=== PATIENT | female | born 1985 | race African-American/Black ===

== ENCOUNTER 2025-02-12 11:21 | Emergency (ER) | payer OTHER ==
[~2025-02-12] VITALS: Ht 165.1 cm; Wt 95.0 kg
[2025-02-12 11:26] VITALS: O2SAT 99
[2025-02-12 11:58] LABS: CLARITY URINE CLOUDY (CLEAR); COLOR URINE YELLOW (YELLOW); GLUCOSE URINE NEGATIVE (NEGATIVE); KETONES URINE TRACE (NEGATIVE); LEUKOCYTE ESTERASE URINE TRACE (NEGATIVE); NITRITE URINE NEGATIVE (NEGATIVE); OCCULT BLOOD URINE NEGATIVE (NEGATIVE); PH URINE 6.5 (4.5-8.0); PROTEIN URINE TRACE (NEGATIVE); SPECIFIC GRAVITY URINE 1.032 (1.005-1.030); UROBILINOGEN URINE 1.0 E.U./dL (0.2-1.0)
[2025-02-12] MEDS: KETOROLAC 15MG/ML VIAL IV ONE (12:09)
[2025-02-12 12:10] LABS: BASOPHILS % 0.9 % (0.0-2.0); EOSINOPHILS % 2.3 % (0.0-5.0); HEMATOCRIT. 38.8 % (36.0-48.0); HEMOGLOBIN. 13.2 g/dL (12.0-16.0); LYMPHOCYTES % 20.0 % (20.0-50.0); MEAN PLATELET VOLUME 8.1 fl (7.4-10.4); MONOCYTES % 3.6 % (2.0-8.0); NEUTROPHILS % 73.2 % (40.0-76.0); PLATELET 360 x1000/uL (130-400); RED BLOOD CELL COUNT 4.47 mill/uL (4.2-5.4); RED CELL DISTRIBUTION WIDTH 13.9 % (11.6-14.6)
[2025-02-12 12:22] LABS: RBC URINE 0-2 /hpf (0-2); SQUAMOUS EPITHELIAL CELL URINE 3+ /lpf (RARE/1+)
[2025-02-12 12:23] LABS: BACTERIA URINE 3+; YEAST URINE NONE SEEN
[2025-02-12 12:37] LABS: CREATININE 0.8 mg/dL (0.6-1.0); UREA NITROGEN BLOOD 11 mg/dL (9-23)
[2025-02-12 12:39] LABS: ASPARTATE AMINOTRANSFERASE 20 IU/L (<34); BILIRUBIN DIRECT 0.1 mg/dL (<=3.0)
[2025-02-12 12:40] LABS: BILIRUBIN TOTAL 0.4 mg/dL (0.1-1.0); PROTEIN TOTAL 7.0 g/dL (6.0-8.3)
[2025-02-12] MEDS: IOHEXOL-300 100 ML BOTTLE ONE (13:07)
[2025-02-12 14:33] VITALS: BP 130/72; PULSE 69; RESP 19; TEMP 36.9; O2SAT 100
== END 2025-02-12 14:34 | disposition home or self-care (01) ==
LOC: ER 11:21
DX: D25.9 Leiomyoma of uterus, unspecified (principal); I10 Essential (primary) hypertension; Z98.890 Other specified postprocedural states
CPT/HCPCS: 99285; 74177; 96374; 80076; 80048; 81003; 81025; 83690; 85025; 36415; J1885; Q9967

== ENCOUNTER 2025-03-02 02:12 | Emergency (ER) | payer OTHER ==
[~2025-03-02] VITALS: Ht 165.1 cm; Wt 109.0 kg
[2025-03-02 02:43] VITALS: O2SAT 99
[2025-03-02 03:03] LABS: CLARITY URINE CLEAR (CLEAR); COLOR URINE YELLOW (YELLOW); GLUCOSE URINE NEGATIVE (NEGATIVE); KETONES URINE TRACE (NEGATIVE); LEUKOCYTE ESTERASE URINE NEGATIVE (NEGATIVE); NITRITE URINE NEGATIVE (NEGATIVE); OCCULT BLOOD URINE 3+ (NEGATIVE); PH URINE 5.5 (4.5-8.0); PROTEIN URINE 1+ (NEGATIVE); SPECIFIC GRAVITY URINE 1.028 (1.005-1.030); UROBILINOGEN URINE 1.0 E.U./dL (0.2-1.0)
[2025-03-02] MEDS: ONDANSETRON HCL 4MG/2ML INJ IV ONE (03:36)
[2025-03-02] MEDS: MORPHINE SULFATE 4 MG/ML INJ (FOR IV/IM USE) IV ONE (03:37)
[2025-03-02 03:40] LABS: BASOPHILS % 0.9 % (0.0-2.0); EOSINOPHILS % 2.9 % (0.0-5.0); HEMATOCRIT. 38.2 % (36.0-48.0); HEMOGLOBIN. 12.7 g/dL (12.0-16.0); LYMPHOCYTES % 18.1 % (20.0-50.0); MEAN PLATELET VOLUME 8.6 fl (7.4-10.4); MONOCYTES % 6.0 % (2.0-8.0); NEUTROPHILS % 72.1 % (40.0-76.0); PLATELET 295 x1000/uL (130-400); RED BLOOD CELL COUNT 4.37 mill/uL (4.2-5.4); RED CELL DISTRIBUTION WIDTH 14.0 % (11.6-14.6)
[2025-03-02 03:51] LABS: CREATININE 0.9 mg/dL (0.6-1.0)
[2025-03-02 03:52] LABS: UREA NITROGEN BLOOD 8 mg/dL (9-23)
[2025-03-02 03:53] LABS: ASPARTATE AMINOTRANSFERASE 47 IU/L (<34)
[2025-03-02 03:54] LABS: BILIRUBIN DIRECT 0.1 mg/dL (<=3.0); BILIRUBIN TOTAL 0.7 mg/dL (0.1-1.0); PROTEIN TOTAL 6.8 g/dL (6.0-8.3)
[2025-03-02 04:12] LABS: SQUAMOUS EPITHELIAL CELL URINE 1+ /lpf (RARE/1+)
[2025-03-02 04:27] LABS: AMORPHOUS SEDIMENT URINE 2+ /lpf; BACTERIA URINE NONE SEEN; WBC URINE 0-2 /hpf (0-2)
[2025-03-02] MEDS ORDERED: HYDR-4001 MT (05:41)
[2025-03-02] MEDS: KETOROLAC 15MG/ML VIAL IV ONE (06:05)
[2025-03-02 06:10] VITALS: BP 120/58; PULSE 63; RESP 19; TEMP 36.7; O2SAT 99
== END 2025-03-02 06:12 | disposition home or self-care (01) ==
LOC: ER 02:12
DX: R10.2 Pelvic and perineal pain (principal); D25.9 Leiomyoma of uterus, unspecified; Z86.018 Personal history of other benign neoplasm; Z79.899 Other long term (current) drug therapy
CPT/HCPCS: 80076; 80048; 81003; 81025; 83690; 85025; 36415; 76830; 76856; 96374; 96375; 99285; J1885; J2405; J2270; Z7610

== ENCOUNTER 2025-04-14 05:41 | Emergency (ER) | payer OTHER ==
[~2025-04-14] VITALS: Ht 162.6 cm; Wt 107.0 kg
[~2025-04-14 05:41] MED LIST: HYDR-4001 MT
[2025-04-14 05:49] VITALS: O2SAT 98
[2025-04-14 05:54] VITALS: TEMP 36.6
[2025-04-14] MEDS ORDERED: MORPHINE SULFATE 4 MG/ML INJ (FOR IV/IM USE) IV ONE (06:15)
[2025-04-14] MEDS ORDERED: KETOROLAC 15MG/ML VIAL IV ONE (06:15)
[2025-04-14 06:37] LABS: BASOPHILS % 0.2 % (0.0-2.0); EOSINOPHILS % 2.6 % (0.0-5.0); HEMATOCRIT. 39.0 % (36.0-48.0); HEMOGLOBIN. 13.1 g/dL (12.0-16.0); LYMPHOCYTES % 21.2 % (20.0-50.0); MEAN PLATELET VOLUME 8.9 fl (7.4-10.4); MONOCYTES % 5.3 % (2.0-8.0); NEUTROPHILS % 70.7 % (40.0-76.0); PLATELET 319 x1000/uL (130-400); RED BLOOD CELL COUNT 4.48 mill/uL (4.2-5.4); RED CELL DISTRIBUTION WIDTH 13.6 % (11.6-14.6)
[2025-04-14 06:50] LABS: CREATININE 0.7 mg/dL (0.6-1.0); UREA NITROGEN BLOOD 10 mg/dL (9-23)
[2025-04-14 06:52] LABS: ASPARTATE AMINOTRANSFERASE 31 IU/L (<34); BILIRUBIN DIRECT 0.1 mg/dL (<=3.0)
[2025-04-14 06:53] LABS: BILIRUBIN TOTAL 0.6 mg/dL (0.1-1.0); PROTEIN TOTAL 7.3 g/dL (6.0-8.3)
[2025-04-14 07:50] LABS: CLARITY URINE CLEAR (CLEAR); COLOR URINE YELLOW (YELLOW); GLUCOSE URINE NEGATIVE (NEGATIVE); KETONES URINE TRACE (NEGATIVE); LEUKOCYTE ESTERASE URINE TRACE (NEGATIVE); NITRITE URINE NEGATIVE (NEGATIVE); OCCULT BLOOD URINE 3+ (NEGATIVE); PH URINE 5.5 (4.5-8.0); PROTEIN URINE NEGATIVE (NEGATIVE); SPECIFIC GRAVITY URINE 1.029 (1.005-1.030); UROBILINOGEN URINE 1.0 E.U./dL (0.2-1.0)
[2025-04-14] MEDS: KETOROLAC 15MG/ML VIAL IV NR (08:02)
[2025-04-14] MEDS: MORPHINE SULFATE 4 MG/ML INJ (FOR IV/IM USE) IV NR (08:02)
[2025-04-14] MEDS: IOHEXOL-300 100 ML BOTTLE ONE (08:08)
[2025-04-14 08:21] LABS: BACTERIA URINE 2+; SQUAMOUS EPITHELIAL CELL URINE 2+ /lpf (RARE/1+); YEAST URINE NONE SEEN
[2025-04-14 08:22] LABS: RBC URINE 0-2 /hpf (0-2)
[2025-04-14] MEDS ORDERED: CEFP100T8 MT (08:38)
[2025-04-14] MEDS: CEPHALEXIN 250MG CAPSULE PO ONE (08:50)
[2025-04-14 08:53] VITALS: BP 122/58; PULSE 71; RESP 18; O2SAT 99
[2025-04-15] MEDS ORDERED: NAPR-1074 MT (04:35)
[2025-04-15] MEDS ORDERED: ALBU90AE INH (04:35)
== END 2025-04-14 08:54 | disposition home or self-care (01) ==
LOC: ER 05:41 → CANBEDREQ 07:37 → ER 08:54
DX: N39.0 Urinary tract infection, site not specified (principal); N83.209 Unspecified ovarian cyst, unspecified side
CPT/HCPCS: 99285; 74177; 96374; 93976; 76830; 76856; 96375; 80076; 80048; 81003; 83690; 85025; 36415; J1885; Q9967; J2270

== ENCOUNTER 2025-04-15 01:30 | Emergency (ER) | payer OTHER ==
[~2025-04-15] VITALS: Ht 167.6 cm; Wt 107.1 kg
[~2025-04-15 01:30] MED LIST changes: +CEFP100T8 MT
[2025-04-15] MEDS: ONDANSETRON HCL 4MG/2ML INJ IV ONE (02:23)
[2025-04-15 02:28] LABS: BASOPHILS % 0.6 % (0.0-2.0); EOSINOPHILS % 1.2 % (0.0-5.0); HEMATOCRIT. 37.7 % (36.0-48.0); HEMOGLOBIN. 12.4 g/dL (12.0-16.0); LYMPHOCYTES % 9.8 % (20.0-50.0); MEAN PLATELET VOLUME 9.0 fl (7.4-10.4); MONOCYTES % 4.4 % (2.0-8.0); NEUTROPHILS % 84.0 % (40.0-76.0); PLATELET 278 x1000/uL (130-400); RED BLOOD CELL COUNT 4.30 mill/uL (4.2-5.4); RED CELL DISTRIBUTION WIDTH 13.4 % (11.6-14.6)
[2025-04-15 02:37] LABS: CREATININE 0.8 mg/dL (0.6-1.0)
[2025-04-15 02:38] LABS: TROPONIN I HIGH SENSITIVITY < 4 ng/L (3.0-34); UREA NITROGEN BLOOD 14 mg/dL (9-23)
[2025-04-15] MEDS: HYDROCODONE/ACETAMINOPHEN 5/325MG TABLET PO SCH (03:02)
[2025-04-15 03:09] VITALS: PULSE 93; RESP 20; O2SAT 98
[2025-04-15] MEDS: ALBUTEROL (0.083%) 2.5MG/3ML NEB HHN SCH (03:09)
[2025-04-15] MEDS ORDERED: NAPR-1074 MT (04:35)
[2025-04-15] MEDS ORDERED: ALBU90AE INH (04:35)
[2025-04-15] MEDS: KETOROLAC 15MG/ML VIAL IV SCH (04:42)
[2025-04-15 05:08] VITALS: BP 112/62; PULSE 82; RESP 16; TEMP 36.8; O2SAT 97
== END 2025-04-15 05:17 | disposition home or self-care (01) ==
LOC: ER 01:30
DX: R06.02 Shortness of breath (principal); F41.9 Anxiety disorder, unspecified; D25.9 Leiomyoma of uterus, unspecified; E78.00 Pure hypercholesterolemia, unspecified
CPT/HCPCS: 80048; 85025; 84484; 36415; 71045; 94640; 93005; 96374; 96375; 99285; J1885; J2405; Z7610 ×3; 94070; 94664; 98960